=== PATIENT | female | born 1990 | race Caucasian/White ===

== ENCOUNTER 2017-10-29 18:21 | Emergency (ER) | payer BC, OTHER ==
[2017-10-29 19:16] VITALS: BP 111/72
[2017-10-29] MEDS: Ibuprofen TAB* 600 MG PO ONE (19:20)
[2017-10-29] MEDS: Ondansetron ODT TAB* 4 MG PO ONE (19:36)
--- NOTE | 2017-10-30 16:55 | UC ---
FLU HPI - HPI Summary HPI Summary: Patient urgent care tonight with temperature 101- 103 patient doesn't have any real complaints except a headache no cough no night sweats no nausea no vomiting no diarrhea - History of Current Complaint Chief Complaint: UCRespiratory Stated Complaint: FEVER, CHILLS Time Seen by Provider: 10/29/17 19:17 Hx Obtained From: Patient Hx Last Menstrual Period: 10/09/17 ?: No Onset/Duration: Sudden Onset Severity Currently: Mild Severity Initially: Moderate Pain Intensity: 5 Pain Scale Used: 0-10 Numeric Associated Signs & Symptoms: Positive: Fever, Headache - Allergy/Home Medications Allergies/Adverse Reactions: Allergies Allergy/AdvReac Type Severity Reaction Status Date / Time No Known Allergies Allergy Verified 12/08/13 21:11 Home Medications: Home Medications Acetaminophen [Tylenol] 650 10/29/17 [History] Fexofenadine/Pseudoephedrine [Floridalma-D 24 Hour Tablet] 10/29/17 [History] Ondansetron ODT TAB* [Zofran 4 MG Odt TAB*] 10/29/17 [History] PMH/Surg Hx/FS Hx/Imm Hx Previously Healthy: Yes - Surgical History Surgical History: Yes Surgery Procedure, Year, and Place: RIGHT SHOULDER ARTHROSCOPY 2016. WISDOM TEETH 2017 - Family History Known Family History: Positive: None - Social History Occupation: Employed Full-time Lives: With Family Alcohol Use: Occasionally Substance Use Type: None Smoking Status (MU): Never Smoked Tobacco Review of Systems Constitutional: Fever - 1 minute Skin: Negative Eyes: Negative ENT: Negative Respiratory: Negative Cardiovascular: Negative Gastrointestinal: Negative Genitourinary: Negative Motor: Negative Neurovascular: Negative Musculoskeletal: Negative Neurological: Headache Psychological: Negative Is Patient Immunocompromised?: No All Other Systems Reviewed And Are Negative: Yes Physical Exam Triage Information Reviewed: Yes Appearance: Well-Appearing, No Pain Distress, Well-Nourished Vital Signs: Initial Vital Signs Temp 103.0 F 10/29/17 19:07 Pulse 112 10/29/17 19:07 Resp 18 10/29/17 19:07 BP 111/72 10/29/17 19:07 Pulse Ox 94 10/29/17 19:07 Vital Signs Reviewed: Yes Eye Exam: Normal Eyes: Positive: Conjunctiva Clear ENT Exam: Normal ENT: Positive: Normal ENT inspection, Hearing grossly normal, Pharynx normal, TMs normal, Uvula midline. Negative: Nasal congestion, Nasal drainage, Trismus , Muffled voice, Hoarse voice, Dental tenderness, Sinus tenderness Neck exam: Normal Neck: Positive: Supple, Nontender, No Lymphadenopathy Respiratory Exam: Normal - Sat rechecked 98% on room air Respiratory: Positive: Chest non-tender, Lungs clear, Normal breath sounds, No respiratory distress, No accessory muscle use Cardiovascular Exam: Normal Cardiovascular: Positive: RRR, No Murmur, Pulses Normal, Brisk Capillary Refill Musculoskeletal Exam: Normal Musculoskeletal: Positive: Strength Intact, ROM Intact, No Edema Neurological Exam: Normal Neurological: Positive: Alert, Muscle Tone Normal Psychological Exam: Normal Skin Exam: Normal Diagnostics - Laboratory Diagnostic Studies Completed/Ordered: Influenza A and influenza B negative rapid strep test negative UA within normal limits Flu Course/Dx - Course Course Of Treatment: Rest increase fluids Tylenol or ibuprofen for pain or fever follow up with primary care doctor as needed to the emergency department for worsening symptoms - Differential Dx/Diagnosis Provider Diagnoses: Viral febrile illness Discharge - Discharge Plan Condition: Stable Disposition: HOME Patient Education Materials: Fever in Adults (ED), Viral Syndrome (ED) Referrals: Nikolay Caceres MD [Primary Care Provider] - If Needed
== END 2017-10-29 19:59 | disposition home or self-care (01) ==
LOC: UCCORT 18:21
DX: B34.9 Viral infection, unspecified (principal); F50.9 Eating disorder, unspecified
CPT/HCPCS: 81003; 87502; 87651; 99201; A9270-GY; G0463